=== PATIENT | male | born 1965 | race Caucasian/White ===

== ENCOUNTER 2017-04-21 19:49 | Emergency (ER) | payer OTHER ==
[2017-04-21 20:04] VITALS: BP 120/77; PULSE 62; RESP 16; TEMP 98.1; O2SAT 63
--- NOTE | 2017-04-21 21:06 | EDPHY ---
H & P Stated Complaint: lac to left thumb Time Seen by Provider: 04/21/17 21:06 HPI/ROS: HPI: Is a 51-year-old male who presents with Chief Complaint: Left Thumb laceration Location: Left thumb Quality: Laceration Duration: Prior to arrival Signs and Symptoms: + bleeding, no radiation, no numbness, no weakness, no tingling, no incontinence, no decreased range of motion, + swelling, + pain Timing:acute Severity: mild to moderate Context: Patient is right-hand dominant was helping get his father and lost wheelchair into the car and somehow he wedged his thumb in between the wheels and the frame. He immediately felt pain and noted laceration and bleeding. He applied direct pressure and drove to the emergency room. He denies any paresthesias/decreased range of motion. Does not take any blood thinners. Patient advised that his last tetanus shot was within the last 3 years but told nursing that he is due for one. Modifying Factors: Direct pressure Comment: ROS: see HPI Constitutional: No fever, no chills, no weight loss Eyes: No blurred vision Respiratory: No shortness of breath, no cough Cardiovascular: No chest pain Gastrointestinal: No nausea, no vomiting no diarrhea Genitourinary: No dysuria Extremities: No myalgias Neurologic: No weakness, no numbness Skin: No rashes Hematologic: No bruising, no bleeding MEDICAL/SURGICAL/SOCIAL HISTORY: Medical?surgical history: right obital rupture, hernia surgery Social history: Works as a project engineer chemicals, CONSTITUTIONAL: Elderly nontoxic-appearing white male, at bedside, awake and alert, no obvious distress HEENT: Atraumatic and normocephalic, PERRL, EOMI. Tympanic membranes clear. Oropharynx clear, no exudate and moist pink mucosa. Airway patent. No lymphadenopathy. No meningismus. Cardiovascular: Normal S1/S2, regular rate, regular rhythm, without murmur rub or gallop. PULMONARY/CHEST: Symmetrical and nontender. Clear to auscultation bilaterally. Good air movement. No accessory muscle usage. ABDOMEN: Soft, nondistended, nontender, no rebound, no guarding, no peritoneal signs, no masses or organomegaly. No CVAT. EXTREMITIES: 2/2 radial pulses, left thumb over MIP joint palmar aspect; 3 cm irregular v-shaped laceration; DIP/MIP flexion/extension intact. Good light touch sensation. Gamma Facilities Operator strength 5/5, no deformities, no clubbing, no cyanosis or edema. NEUROLOGICAL: no focal neuro deficits. GCS 15. SKIN: Warm and dry, no erythema. no rash. Good capillary refill. Source: Patient, Family () - Personal History Current Tetanus/Diphtheria Vaccine: No Current Tetanus Diphtheria and Acellular Pertussis (TDAP): No - Medical/Surgical History Hx Asthma: Yes Hx Chronic Respiratory Disease: No Hx Diabetes: No Hx Cardiac Disease: No Hx Renal Disease: No Hx Cirrhosis: No Hx Alcoholism: No Hx HIV/AIDS: No Hx Splenectomy or Spleen Trauma: No Other PMH: right obital reputure, hernia surgery - Social History Smoking Status: Never smoked Constitutional: Initial Vital Signs Temperature (C) 36.7 C 04/21/17 20:01 Heart Rate 62 04/21/17 20:01 Respiratory Rate 16 04/21/17 20:01 Blood Pressure 120/77 04/21/17 20:01 O2 Sat (%) 63 L 04/21/17 20:01 O2 Delivery Mode Room Air Allergies/Adverse Reactions: Sulfa (Sulfonamide Antibiotics) Allergy (Verified 04/21/17 20:05) Home Medications: Medication Instructions Recorded NK [No Known Home Meds] 04/21/17 Medical Decision Making - Diagnostics Imaging Results: Imaging Impressions Finger X-Ray 04/21/17 20:30 Impression: There is no acute osseous abnormality identified. Procedures: Procedure: Laceration repair. Verbal consent was obtained from the patient. The left thumb 3 cm irregular laceration was anesthetized in the usual fashion. The wound was irrigated, draped and explored to its base with a gloved finger. There were no deep structures involved. No tendon injury was identified. The wound was repaired with #5, 6-0 Prolene. Good hemostasis was achieved and patient tolerated procedure well. Oswaldo Maldonado, finger splint placed. The procedure was performed by myself. Procedure: Splint placement. A left thumb finger splint was applied by the Emergency Room crime lab technician. After application of the splint I returned and re-examined the patient. The splint was adequately immobilizing the joint and distal to the splint the patient's circulation and sensation was intact. ED Course/Re-evaluation: Left thumb x-ray, wound care, laceration repair ordered Tetanus booster given Patient repaired with absorbable sutures, clean sterile dressing and finger splint applied. Patient given both verbal and written instructions on wound and laceration care. Finger x-ray my read via PAC shows no acute fracture, dislocation and minimal soft tissue swelling. No signs of neurovascular compromise/tenting of skin/compartment syndrome/ extremities and joints examined above and below area of concern and are neurovascularly intact/tendon injury/nerve injury. Differential Diagnosis: Differential diagnosis includes but is not limited to laceration, nerve injury, tendon injury, contusion, sprain, phalanx fracture. - Data Points Medications Given: Discontinued Medications Diphtheria/Tetanus/Acell Pertussis (Boostrix) 0.5 ml IM .ONCE ONE Stop: 04/21/17 21:09 Last Admin: 04/21/17 21:14 Dose: 0.5 ml Ibuprofen (Motrin) 600 mg PO EDNOW ONE Stop: 04/21/17 21:17 Last Admin: 04/21/17 21:19 Dose: 600 mg Departure - Departure Disposition: Home, Routine, Self-Care Clinical Impression: Laceration of left thumb without complication Qualifiers: Encounter type: initial encounter Qualified Code(s): S61.012A - Laceration without foreign body of left thumb without damage to nail, initial encounter Condition: Good Instructions: Finger Laceration (ED) Additional Instructions: Keep the dressing and splint dry and in place for 48 hours. After 48 hours, you may remove the dressing and splint; wash the site daily with mild soap and water; then pat dry. Apply ice for 30 minutes at a time; 2-3 times per day for the next 1-2 days. Please return to the emergency room for suture removal in 7-10 days. Follow up with Hand surgery in 5-7 days. The x-rays obtained in the emergency department today demonstrate no evidence of an obvious fracture. Sometimes fractures are not obvious on the initial set of x-rays performed in the ED. For this reason, you should have repeat x-rays performed in 7-10 days if you are having any pain exclude the possibility of an occult fracture. Referrals: Dejuan Biswas MD [Medical Doctor] - As per Instructions
[2017-04-21] MEDS ORDERED: TDAP ADULT 0.5 ML INJ (BOOSTRIX) IM ONE (21:08)
[2017-04-21] MEDS ORDERED: IBUPROFEN 600 MG TAB PO ONE (21:16)
== END 2017-04-21 21:16 | disposition home or self-care (01) ==
PROC: 0HQGXZZ Repair Left Hand Skin, External Approach (ICD-10-PCS; principal; 2017-04-21)
DX: S61.012A Laceration without foreign body of left thumb without damage to nail, initial encounter (principal); W23.0XXA Caught, crushed, jammed, or pinched between moving objects, initial encounter; J45.909 Unspecified asthma, uncomplicated; Z23 Encounter for immunization
CPT/HCPCS: L3925